=== PATIENT | female | born 1970 | race Caucasian/White ===

== ENCOUNTER 2024-01-09 10:06 | Emergency (ER) | payer OTHER, SELFPAY ==
[2024-01-09 10:13] VITALS: BP 185/102
--- NOTE | 2024-01-09 11:38 | ED.GENMED ---
History of Present Illness
General
Chief Complaint: Blood Pressure Problem
Source: patient and other (Friend)
Exam Limitations: none
Time Seen by Provider: 01/09/24 11:13
Nursing documentation reviewed up to this point in time: agreed with
Travel History
Have you had any contact with someone who has COVID-19?: No
Do you have any symptoms of coronavirus? Fever > 100 degrees, chills, cough, shortness of breath, sore throat, loss of taste or smell, muscle aches, or headache?: No
History of Present Illness
History of Present Illness:
53-year-old female presents emergency department complaining of blood pressure the last 2 days, and feeling weak like she was going to pass out this morning. She is currently being treated with amoxicillin for a right lower dental abscess. She has
some intermittent numbness of her right jaw. She also felt a numbness across her chest today. No focal weakness.
Past History
Past History
ED Past Medical History: HTN and Hypercholesterolemia
ED Past Surgical History: None
Patient has exhibited threatening behavior?: No
PSI?: No
Social History
Tobacco: Non-smoker
Alcohol: None
Personal:
Living: with family
Employment: Employed
Family History
Family History: CAD (Mother)
Review of Systems
Review of Systems
Allergies reviewed?: Yes
All Other Systems: Not applicable
Constitutional: Reports no symptoms
EENT: Reports mouth pain
Respiratory: Reports no symptoms
Cardiac: Reports no symptoms
ABD/GI: Reports no symptoms
: Reports no symptoms
Musculoskeletal: Reports no symptoms
Skin: Reports no symptoms
Neurological: Reports weakness
Endocrine: Reports no symptoms
Hematologic/Lymphatic: Reports no symptoms
Psychiatric: Reports no symptoms
Phy Exam
Physical Exam
Physical Exam:
Physical Exam
General: no apparent distress, not acutely ill
Neck: supple. no meningeal signs. normal posterior pharynx
Heart: s1/s2 regular rate and rhythm, no murmur. equal radial
pulses.
HEENT: Pupils equal round reactive to light, EOMI
Lungs: no acute respiratory distress. clear bilaterally
Abdomen: normal bowel sounds. not tender. no CVAT
Neuro: alert and oriented. no focal neurological deficits cranial nerves II through XII intact
Skin: no rash
Psychiatric: well kept. interactive and cooperative
Extremities: no edema. no calf tenderness. negative homans. good distal pulses
Course
Orders/Labs/Results
Orders:
Orders
01/09/24 11:35
Cardiac Monitoring- Treatment ONCE
IV Insert/Care/Rem.- Treatment PRN
01/09/24 11:38
Electrocardiogram (*1) Urgent
Reason for Study: Chest Pain
EKG- Treatment ONCE
01/09/24 12:19
Complete Blood Count/With Diff Urgent
Comprehensive Metabolic Panel Urgent
Troponin I Urgent
01/09/24 13:56
CT Neck With Iv Contrast Urgent
Comment:
Reason For Exam: neck swelling, right side dental abscess
Abnormal Lab Results
01/09/24
12:19
RBC 3.89 L 10^6/uL
(4.20-5.40)
Hct 36.2 L %
(37.0-47.0)
MCH 31.9 H pg
(27.0-31.0)
BUN 19 H mg/dl
(7-17)
Glucose 104 H mg/dl
(70-99)
01/09/24 12:19
01/09/24 12:19
Vital Signs
Initial and Last Documented VS:
Initial Vital Signs
Temp Pulse Resp BP Pulse Ox
98.1 F 85 18 185/102 100
01/09/24 10:13 01/09/24 10:13 01/09/24 10:13 01/09/24 10:13 01/09/24 10:13
Last Documented Vital Signs
Temp Pulse Resp BP Pulse Ox
98.1 F 82 18 172/88 100
01/09/24 10:13 01/09/24 16:04 01/09/24 16:04 01/09/24 16:04 01/09/24 16:04
MDM/Problems Addressed
Differential Diagnosis Includes:
Ludewig's angina, deep space infection, periodontal abscess, hypertensive urgency
MDM/Problems Addressed:
53-year-old female with hypertension. No signs of low exam benign, small. Dental abscess, for which patient will follow-up with dentist. Return precautions given
Chronic conditions affecting care: HTN
Acute Exacerbation and/or Progression of Chronic Illness: HTN
*Radiology
Radiology exam reviewed: radiology read reviewed (CT neck shows right first premolar abscess)
*Pulse Oximetry
Patient hypoxic: no
*EKG
Interpreted by ED Provider?: Yes
EKG Intrepretation Date: 01/09/24
EKG Intrepretation Time: 12:03
Interpretation: normal
Comparison EKG: no changes
Heart Rate: 76
Rate: normal
Rhythm: sinus
[place]: normal axis
Interval: normal interval
QRS Pattern: normal QRS
Ischemia: no ischemia
*Blanket Folder Interpretation
Rate: normal
Interpretation: normal
Heart Rate: 75
Rhythm: sinus
*Critical Care Note
Total Time (30-74mins, 75-104mins- exclusive of procedures): Not Applicable
Patient Management
Social determinants of health affecting care: Living situation
Escalation/DeEscalation of care consider admission/obs:
admit not indicated
ED Attending Note
-
Portions of this chart may have been created with voice recognition software.� Occasional wrong word or��sound alike� substitutions may have occurred due to the inherent limitations of voice recognition software.
Discharge Plan
Departure
Patient Disposition: Home (Routine Discharge)
Date of Disposition: 01/09/24
Time of Disposition: 15:32
Patient with high blood pressure during this ER visit?: Yes
Condition: Good
Discharge Problem:
Hypertension, Abscess, dental
Instructions: High Blood Pressure (DC), Tooth Abscess ED
Prescriptions:
No Action
rosuvastatin 10 MG tablet
10 mg PO QPM
cabergoline 0.5 MG tablet
0.5 mg PO WEEKLY
Patient Comments:
twice weekly
Rx Instructions:
twice weekly
fluticasone propionate 1 SPRAY spray,suspension
1 spray intranasal DAILY
losartan 50 mg Tablet
50 mg PO BID
famotidine 40 mg Tablet
40 mg PO DAILY
omeprazole 40 mg Capsule,Delayed Release(Dr/Ec)
40 mg PO DAILY
loratadine [Claritin] 10 mg Tablet
10 mg PO DAILY
Vitamin D2 1,000 unit Capsule
1,000 unit PO DAILY
Referrals:
Maddy Aldridge DO [Family Provider] -
Activity Restrictions/Additional Instructions:
Follow-up with dentist as scheduled. Do not take Aleve/naproxen or ibuprofen. Use Tylenol for your pain. Do not take over 4000 mg of Tylenol in 1 day.
Interventions
Interventions:
*Risk Screen - Suicide Last Done: 01/09/24 12:04
*General Assessment Last Done: 01/09/24 12:04
*Neglect/Abuse Screening Last Done: 01/09/24 12:04
ED- Fall Risk Assessment Last Done: 01/09/24 12:04
*ED COVID-19 Vaccine History Last Done: 01/09/24 10:18
*Nursing Disposition Last Done: 01/09/24 16:04
ED- Cardiac Assessment Last Done: 01/09/24 12:04
ED- Neurological Assessment Last Done: 01/09/24 12:04
ED- Pulmonary Assessment Last Done: 01/09/24 12:04
Discharge Date and Time
Discharge Date/Time: 01/09/24 16:05
[2024-01-09 12:04] VITALS: BMI 28.8
[2024-01-09 12:07] VITALS: BP 162/87
[2024-01-09 12:28] LABS: % Basophils 0.6 % (0-2); % Eosinophils 0.5 % (0-6); % Immature Granulocytes 0.3 % (0-0.5); % Lymphocytes 25.5 % (20.5-51.1); % Monocytes 6.7 % (1.7-9.3); % Neutrophils 66.4 % (42.2-75.2); Absolute Lymphocytes 1.6 10^3/uL (1.2-3.4); Absolute Monocytes 0.4 10^3/uL (0.1-0.6); Absolute Neutrophils 4.1 10^3/uL (1.4-6.5); Hematocrit 36.2 % (37.0-47.0); Hemoglobin 12.4 g/dL (12.0-16.0); Mean Corp Hgb Conc. 34.3 g/dL (33.0-37.0); Mean Corpuscular Hgb 31.9 pg (27.0-31.0); Mean Corpuscular Volume 93.1 fL (81.0-99.0); Mean Platelet Volume 10.4 fL (7.4-10.4); Nucleated Red Blood Cells % 0 %; Platelet Count 279 10^3/uL (130-400); Red Blood Cell Count 3.89 10^6/uL (4.20-5.40); Red Cell Dist. Width 13.2 % (11.5-14.5); White Blood Cell Count 6.2 10^3/uL (4.8-10.8)
[2024-01-09 12:48] LABS: ALT (SGPT) 21 U/L (0-35); AST (SGOT) 27 U/L (14-36); Albumin 4.6 g/dl (3.5-5.0); Alkaline Phosphatase 60 U/L (38-126); Blood Urea Nitrogen 19 mg/dl (7-17); Calcium 9.4 mg/dl (8.4-10.2); Carbon Dioxide 26 mmol/L (22-30); Chloride 103 mmol/L (98-107); Estimated Creatinine Clearance 103 ml/min; Glucose 104 mg/dl (70-99); Potassium 4.2 mmol/L (3.5-5.1); Sodium 139 mmol/L (135-145); Total Bilirubin 0.4 mg/dl (0.2-1.3); Total Protein 7.9 g/dl (6.3-8.2); eGFR > 60.00
[2024-01-09 12:50] LABS: Troponin I < 0.012 ng/ml
[2024-01-09 13:00] VITALS: BP 159/95
[2024-01-09 14:00] VITALS: BP 156/93
--- NOTE | 2024-01-09 16:02 | EDRN ---
Reviewed discharge instructions with patient. Verbalized understanding. Ambulated with steady gait to the lobby.
[2024-01-09 16:04] VITALS: BP 172/88
== END 2024-01-09 16:05 | disposition home or self-care (01) ==
LOC: EMR 10:06
PROVIDERS: EMERGENCY PHYSICIAN Emergency Medicine; FAMILY PHYSICIAN Family Medicine
DX: I10 Essential (primary) hypertension (principal); K04.7 Periapical abscess without sinus; E78.00 Pure hypercholesterolemia, unspecified; Z82.49 Family history of ischemic heart disease and other diseases of the circulatory system
CPT/HCPCS: 99284; 70491; 80053; 84484; 85025; 93005; Q9967

== ENCOUNTER → 2025-04-14 08:22 | Outpatient (REF) | payer OTHER, SELFPAY | LOC: HWRCS 08:22 | PROVIDERS: ATTENDING PHYSICIAN Internal Medicine Cardiovascular Disease; FAMILY PHYSICIAN Family Medicine | DX: R07.89 Other chest pain (principal); R00.2 Palpitations | CPT/HCPCS: 93306 ==

== ENCOUNTER → 2025-05-18 08:22 | Outpatient (REF) | payer OTHER, SELFPAY | LOC: RCS 08:22 | PROVIDERS: ATTENDING PHYSICIAN Internal Medicine Cardiovascular Disease; FAMILY PHYSICIAN Family Medicine | DX: R07.89 Other chest pain (principal); R00.2 Palpitations | CPT/HCPCS: 78452; 93017; A9500 ==